=== PATIENT | male | born 1980 | race Caucasian/White ===

== ENCOUNTER 2019-10-24 23:08 | Emergency (ER) | payer BC ==
[2019-10-24] MEDS ORDERED: HYDROmorphone 1 MG/ML Syringe IM ONE (23:28)
[2019-10-24] MEDS ORDERED: Baclofen 10 MG Tab PO ONE (23:28)
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
[2019-10-25] MEDS ORDERED: HYDROmorphone 0.5 MG/0.5 ML Syringe IVPUSH ONE (00:07)
[2019-10-25] MEDS ORDERED: Propofol 200 MG/20 ML SDV ONE (00:25)
--- NOTE | 2019-10-25 09:09 | CR ---
Shoulder Comp Rt CLINICAL HISTORY: Pain, injury FINDINGS: There is no an anterior dislocation of the humerus. There is a tiny ossific density just above the glenoid which could represent small periosteal avulsion. Patient has had previous rotator cuff repair. There is a shallow Hill-Sachs deformity. IMPRESSION: Anterior dislocation at the glenohumeral joint , Shoulder 1V Rt CLINICAL HISTORY: Post reduction FINDINGS: There is no dislocation in the right shoulder. There is a shallow Hill-Sachs deformity of the superior lateral humeral head. There is a Bankart deformity of the inferior glenoid. Impression: Reduction of previous dislocation There is a Hill-Sachs and Bankart deformity at the glenohumeral joint
== END 2019-10-25 00:59 | disposition home or self-care (01) ==
LOC: JP.ED 23:08
DX: S43.014A Anterior dislocation of right humerus, initial encounter (principal); E66.9 Obesity, unspecified; Z68.34 Body mass index [BMI] 34.0-34.9, adult; X58.XXXA Exposure to other specified factors, initial encounter
CPT/HCPCS: 23655; 73020; 73030; 96372; 99283; A9270; J1170; J2704